=== PATIENT | male | born 1980 | race Caucasian/White ===

== ENCOUNTER → 2021-11-24 | Outpatient (CLI) | payer BC ==
--- NOTE | 2021-11-24 12:39 | XR ---
Right shoulder Limited HISTORY: Pain for 1 year 2 views the right shoulder Question some slight inferior descent of the distal clavicle in relation to the acromion. Right lung apex as visualized is normal. Bone mineralization is maintained. There is no evident fracture or disl ocation. IMPRESSION: Correlate to exclude acromioclavicular separation, shoulder MRI may be of benefit.
--- NOTE | 2021-11-24 12:42 | XR ---
Right elbow HISTORY: Pain 2 views the right elbow Bone mineralization, joint spaces and alignment are maintained. No evident joint effusion. There is s ome mild spurring at the coronoid process. There may be some minimal soft tissue swelling. IMPRESSION: Mild osteoarthritic changes suspected.
--- NOTE | 2021-11-24 13:04 | XR ---
Right leg HISTORY: Pain 3 views of the right leg Bone mineralization, joint spaces and alignment are maintained. There is overlying artifact. IMPRESSION: Normal right leg.
== END | disposition home or self-care (01) ==
LOC: RADXRMAIN 11:25
PROVIDERS: ATTEND Internal Medicine
DX: M25.511 Pain in right shoulder (principal); M25.521 Pain in right elbow; M79.661 Pain in right lower leg